=== PATIENT | male | born 1940 | race Caucasian/White ===

== ENCOUNTER → 2018-05-18 | Outpatient (CLI) | payer MEDICARE, OTHER ==
[~2018-05-18] MED LIST: REGADENOSON 0.4 MG/5 ML DISP.SYRIN. IV ONE
--- NOTE | 2018-05-18 11:08 | PCVCIMAG ---
APPROVED REPORT Study performed: 05/18/2018 08:03:07 EXAM: Comprehensive 2D, Doppler, and color-flow Echocardiogram Patient Location: Echo lab Status: routine BSA: 1.94 HR: 68 bpmBP: 140/70 mmHg Rhythm: NSR Other Information Study Quality: Good Risk Factors: Cardiac Risk Factors: Hyperlipidemia, HTN Indications CAD COPD, Sleep apnea 2D Dimensions IVSd: 11.72 (7-11mm)LVOT Diam: 19.91 (18-24mm) LVDd: 50.45 mm PWd: 10.69 (7-11mm)Ascending Ao: 35.48 (22-36mm) LVDs: 33.48 (25-40mm) Left Atrium: 46.45 (27-40mm) Aortic Root: 24.21 mm LV Single Plane 4CH: 54.69 % LV Single Plane 2CH: 71.16 % Biplane EF: 62.9 % Volumes Left Atrial Volume (Systole) Single Plane 4CH: 66.24 mLSingle Plane 2CH: 65.60 mL LA ESV Index: 36.00 mL/m2 Aortic Valve AoV Peak Chaz.: 4.97 m/s AO Peak Gr.: 98.64 mmHgLVOT Max P.12 mmHg AO Mean Gr.: 63.89 mmHgLVOT Mean P.78 mmHg AO V2 Mean: 3.87 m/sLVOT Max V: 1.13 m/s AO V2 VTI: 121.80 cmLVOT Mean V: 0.95 m/s [place] (VTI): 0.70 [id number] V1 VTI: 27.59 cm [place] Vmax: 0.71 cm2 AI Vmax: 2.93 m/sSV (LVOT): 85.82 mL AI [place]ar: 1.72 m/s2 AI PHT: 493.05 ms Mitral Valve E/A Ratio: 1.0 MV Decel. Time: 168.35 ms MV E Max Chaz.: 0.96 m/s MV A Chaz.: 1.00 m/s IVRT: 128.03 ms TDI E/Lateral E': 16.00E/Medial E': 12.00 Medial E' Chaz.: 0.08 m/s Lateral E' Chaz.: 0.06 m/s Pulmonary Valve PV Peak Gr.: 2.34 mmHg Pulmonary Vein P Vein S: 0.50 m/sP Vein A: 0.32 m/s P Vein D: 0.35 m/sP Vein A Dur.: 79.6 msec P Vein S/D Ratio: 1.43 Left Ventricle The left ventricle is normal size. There is normal LV segmental wall motion. Mild concentric left ventricular hypertrophy. Left ventricular systolic function is normal. The left ventricular ejection fraction is within the normal range. LVEF is 60-65%. Right Ventricle The right ventricle is normal size. The right ventricular systolic function is normal. Atria Left atrium is mildly dilated. The right atrium size is normal. Aortic Valve Aortic valve leaflets are moderately thickened. Mild aortic regurgitation. Severe aortic stenosis. Highest mean aortic valve gradient is 64mmHg. Peak aortic valve gradient is 99mmHg. Aortic valve area is .7cm2. Mitral Valve Mitral valve leaflets are thickened. Mild mitral regurgitation. No evidence of mitral valve stenosis. Tricuspid Valve The tricuspid valve is normal in structure. There is no tricuspid valve regurgitation noted. Pulmonic Valve The pulmonary valve is normal in structure. There is no pulmonic valvular regurgitation. Great Vessels The aortic root is normal in size. IVC is normal in size and collapses >50% with inspiration. Pericardium There is no pericardial effusion. <Conclusion> The left ventricle is normal size. Mild concentric left ventricular hypertrophy. Left ventricular systolic function is normal. The right ventricle is normal size. Left atrium is mildly dilated. Mild aortic regurgitation. Severe aortic stenosis. Highest mean aortic valve gradient is 64mmHg. Mitral valve leaflets are thickened. Mild mitral regurgitation.
--- NOTE | 2018-05-18 13:10 | PCVCIMAG ---
APPROVED REPORT Imaging Protocol: Rest Tc-99m/Stress Tc-99m 1 day Study performed: 05/18/2018 08:47:40 Indication: CAD, TERRY, Aortic Stenosis Patient Location: Out-Patient Stress Nurse: Lynsey Moss RN, Koki Joya RN DC Tech:Mark Mckee NMTCB Ht: 5 ft 5 in Wt: 190 lbs BSA: 1.94 m2 HR: 61 bpm BP: 138/63 mmHg BMI: 31.61 Rhythm: Sinus Rhythm, T wave Abnormality Medical History Medical History: Age, Hyperlipidemia, COPD, Former smoker Medications: Simvastatin, Nitroglycerin Allergies: Crestor Previous Cardiac Procedures: PCI Exercise History: Sedentary Resting Data Rest SPECT myocardial perfusion imaging was performed in supine position 45 minutes following the intravenous injection of 11.1 mCi of Tc-99m Sestamibi. Time of rest injection: 0850 Date: 05/18/2018 Administration Route: IV Administration Site: Right AC Pharmacologic Stress Pharmacologic stress test was performed by injecting Regadenoson 0.4 mg IV push over 10-15 seconds immediately followed by the intravenous injection of 35.6 mCi of Tc-99m Sestamibi. Time of stress injection: 1000 Date: 05/18/2018 Administration Route: IV Administration Site: Right AC Gated Stress SPECT was performed 45 minutes after stress injection. The images were gated to evaluate regional wall motion and calculate left ventricular ejection fraction. Stress Test Details Stress Test: Pharmacologic stress testing performed using 0.4 mg of regadenoson per 5 mL given IV over 10 seconds. Reason for pharmacologic stress test: Knee issues. HRMax Heart Rate (APMHR): 144 bpm Resting HR: 61 bpmTarget HR (85% APMHR): 122 bpm Max HR Achieved: 76 bpm % of APMHR: 52 Recovery HR: 73 bpm BP Resting BP: 138/63 mmHg Max BP: 139/53 mmHg Recovery BP: 131/60 mmHg ECG Resting ECG: Sinus Rhythm, ST-T wave Abn. Stress ECG: Sinus Rhythm, ST-T wave Abn. ST Change: Nondiagnostic resting ST abnormalities Arrhythmia: None Recovery ECG: Sinus Rhythm, ST-T wave Abn. Clinical Reason for Termination: Completed protocol Stress Symptoms: Dyspnea, Headache, Dizziness Symptoms resolved with caffeine. Study Quality Study: Good Study Data Post stress, the left ventricular ejection was 56%.. SSS: 2 SRS: 0 SDS: 2 TID = 1.12. Perfusion There is a medium area of moderately reduced uptake in the basal and mid segment of the inferior wall which is seen on the stress images and improves on the resting images. This area thickens and moves normally and is most consistent with ischemia. Wall Motion Normal left ventricular wall motion. Nuclear Conclusion ECG Findings: non-diagnostic Clinical Findings: non-diagnostic Nuclear Findings: positive for ischemia Exercise Capacity: not assessed Left Ventricular Function: normal There is ischemia in the basal and mid segment of the inferior wall. Normal global and segmental LV systolic function.
== END | disposition home or self-care (01) ==
LOC: PCVCIMAG 12:24
PROVIDERS: ATTEND Internal Medicine Cardiovascular Disease
DX: I08.0 Rheumatic disorders of both mitral and aortic valves (principal); I25.10 Atherosclerotic heart disease of native coronary artery without angina pectoris; J44.9 Chronic obstructive pulmonary disease, unspecified; R06.09 Other forms of dyspnea; I10 Essential (primary) hypertension; E78.00 Pure hypercholesterolemia, unspecified; G47.00 Insomnia, unspecified; Z87.891 Personal history of nicotine dependence
CPT/HCPCS: 36415; 78452; 93017; 93306; A9500; G0463; J2785

== ENCOUNTER → 2018-07-06 | Outpatient (CLI) | payer MEDICARE, OTHER | END | disposition home or self-care (01) | LOC: PCVCCLINIC 14:21 | PROVIDERS: ATTEND Internal Medicine | DX: I25.10 Atherosclerotic heart disease of native coronary artery without angina pectoris (principal); I35.0 Nonrheumatic aortic (valve) stenosis; I10 Essential (primary) hypertension; I48.91 Unspecified atrial fibrillation; E78.00 Pure hypercholesterolemia, unspecified; G47.33 Obstructive sleep apnea (adult) (pediatric); Z79.82 Long term (current) use of aspirin; Z87.891 Personal history of nicotine dependence | CPT/HCPCS: 36415; 85610; 93005; G0463 ==

== ENCOUNTER → 2018-07-13 | Outpatient (CLI) | payer MEDICARE, OTHER | END | disposition home or self-care (01) | LOC: PCVCCLINIC 13:04 | PROVIDERS: ATTEND Internal Medicine Cardiovascular Disease | DX: Z51.81 Encounter for therapeutic drug level monitoring (principal); Z79.01 Long term (current) use of anticoagulants; Z88.8 Allergy status to other drugs, medicaments and biological substances; Z88.6 Allergy status to analgesic agent | CPT/HCPCS: 36415; 85610 ==

== ENCOUNTER → 2018-07-19 | Outpatient (CLI) | payer MEDICARE, OTHER | END | disposition home or self-care (01) | LOC: PCVCCLINIC 10:53 | PROVIDERS: ATTEND Internal Medicine Cardiovascular Disease | DX: Z51.81 Encounter for therapeutic drug level monitoring (principal); I25.10 Atherosclerotic heart disease of native coronary artery without angina pectoris; E78.00 Pure hypercholesterolemia, unspecified; J44.9 Chronic obstructive pulmonary disease, unspecified; I48.91 Unspecified atrial fibrillation; Z79.01 Long term (current) use of anticoagulants | CPT/HCPCS: 36415; 85610 ==

== ENCOUNTER → 2018-07-20 | Outpatient (CLI) | payer MEDICARE, OTHER | END | disposition home or self-care (01) | LOC: PCVCCLINIC 15:30 | PROVIDERS: ATTEND Internal Medicine Cardiovascular Disease | DX: I25.10 Atherosclerotic heart disease of native coronary artery without angina pectoris (principal); I10 Essential (primary) hypertension; I48.91 Unspecified atrial fibrillation; Z87.891 Personal history of nicotine dependence | CPT/HCPCS: 93005; G0463 ==

== ENCOUNTER → 2018-07-20 | Outpatient (CLI) | payer MEDICARE, OTHER ==
--- NOTE | 2018-07-20 17:19 | PCVCIMAG ---
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 2D Dimensions IVSd: 9.94 (7-11mm)LVOT Diam: 21.32 (18-24mm) LVDd: 43.64 mm PWd: 11.15 (7-11mm)Ascending Ao: 32.87 (22-36mm) LVDs: 35.30 (25-40mm) Left Atrium: 51.09 (27-40mm) Aortic Root: 31.28 mm LV Single Plane 4CH: 56.80 % LV Single Plane 2CH: 53.95 % Biplane EF: 56.4 % Volumes Left Atrial Volume (Systole) Single Plane 4CH: 85.91 mLSingle Plane 2CH: 76.53 mL LA ESV Index: 43.00 mL/m2 Aortic Valve AoV Peak Chaz.: 3.21 m/s AO Peak Gr.: 41.25 mmHgLVOT Max P.78 mmHg AO Mean Gr.: 18.93 mmHgLVOT Mean P.54 mmHg AO V2 Mean: 1.99 m/sLVOT Max V: 1.39 m/s AO V2 VTI: 58.91 cmLVOT Mean V: 0.85 m/s [place] (VTI): 1.59 [id number] V1 VTI: 26.19 cm [place] Vmax: 1.55 cm2 SV (LVOT): 93.45 mL Mitral Valve E/A Ratio: 1.4 MV Decel. Time: 240.28 ms MV E Max Chaz.: 1.15 m/s MV A Chaz.: 0.83 m/s IVRT: 58.82 ms Pulmonary Valve PV Peak Chaz.: 1.39 m/sPV Peak Gr.: 7.69 mmHg Pulmonary Vein P Vein S: 0.35 m/sP Vein A: 0.29 m/s P Vein D: 0.56 m/sP Vein A Dur.: 148.8 msec P Vein S/D Ratio: 0.63 Tricuspid Valve TR Peak Chaz.: 2.45 m/s TR Peak Gr.: 24.01 mmHg TV Vmax: 0.73 m/s Left Ventricle The left ventricle is normal size. There is normal LV segmental wall motion. There is normal left ventricular wall thickness. Left ventricular systolic function is normal. The left ventricular ejection fraction is within the normal range. LVEF is 55-60%. Grade II - pseudonormal filling dynamics. Right Ventricle The right ventricle is normal size. The right ventricular systolic function is normal. Atria Left atrium is moderately dilated. Right atrium is moderately dilated. Aortic Valve #21 mm Aldo Malave bioprosthetic aortic valve replacement Trace aortic regurgitation. Maximum pressure gradient of 41 mmHg and mean pressure gradient of 19 mmHg. Mitral Valve The mitral valve is normal in structure. Mild mitral regurgitation. No evidence of mitral valve stenosis. Tricuspid Valve The tricuspid valve is normal in structure. Mild tricuspid regurgitation with PAP of 31 mmHg. Pulmonic Valve The pulmonary valve is normal in structure. Moderate pulmonic regurgitation. Great Vessels The aortic root is normal in size. IVC is normal in size and collapses >50% with inspiration. Pericardium There is no pericardial effusion. There is no pleural effusion. <Conclusion> The left ventricle is normal size. There is normal left ventricular wall thickness. Left ventricular systolic function is normal. Grade II - pseudonormal filling dynamics. The right ventricle is normal size. Left atrium is moderately dilated. Right atrium is moderately dilated. #21 mm Aldo Malave bioprosthetic aortic valve replacement Mild mitral regurgitation. Mild tricuspid regurgitation with PAP of 31 mmHg.
== END | disposition home or self-care (01) ==
LOC: PCVCIMAG 15:04
PROVIDERS: ATTEND Internal Medicine Cardiovascular Disease
DX: I08.1 Rheumatic disorders of both mitral and tricuspid valves (principal); I25.10 Atherosclerotic heart disease of native coronary artery without angina pectoris; I10 Essential (primary) hypertension; R60.9 Edema, unspecified; I48.0 Paroxysmal atrial fibrillation; M19.90 Unspecified osteoarthritis, unspecified site; Z79.82 Long term (current) use of aspirin; Z87.891 Personal history of nicotine dependence; Z88.8 Allergy status to other drugs, medicaments and biological substances
CPT/HCPCS: 93005; 93306; G0463

== ENCOUNTER → 2018-07-26 | Outpatient (CLI) | payer MEDICARE, OTHER | END | disposition home or self-care (01) | LOC: PCVCCLINIC 09:00 | PROVIDERS: ATTEND Internal Medicine Cardiovascular Disease | DX: Z51.81 Encounter for therapeutic drug level monitoring (principal); I25.10 Atherosclerotic heart disease of native coronary artery without angina pectoris; J44.9 Chronic obstructive pulmonary disease, unspecified; E78.00 Pure hypercholesterolemia, unspecified; I48.91 Unspecified atrial fibrillation; Z79.01 Long term (current) use of anticoagulants | CPT/HCPCS: 36415; 85610 ==

== ENCOUNTER → 2018-08-17 | Outpatient (CLI) | payer MEDICARE, OTHER | END | disposition home or self-care (01) | LOC: PCVCCLINIC 13:00 | PROVIDERS: ATTEND Internal Medicine Cardiovascular Disease | DX: Z51.81 Encounter for therapeutic drug level monitoring (principal); I25.10 Atherosclerotic heart disease of native coronary artery without angina pectoris; E78.00 Pure hypercholesterolemia, unspecified; J44.9 Chronic obstructive pulmonary disease, unspecified; I48.91 Unspecified atrial fibrillation; Z79.01 Long term (current) use of anticoagulants | CPT/HCPCS: 36415; 85610 ==

== ENCOUNTER → 2018-08-26 | Outpatient (CLI) | payer MEDICARE, OTHER | END | disposition home or self-care (01) | LOC: PCVCCLINIC 09:20 | PROVIDERS: ATTEND Internal Medicine Cardiovascular Disease | DX: Z51.81 Encounter for therapeutic drug level monitoring (principal); I48.91 Unspecified atrial fibrillation; E78.00 Pure hypercholesterolemia, unspecified; J44.9 Chronic obstructive pulmonary disease, unspecified; E66.09 Other obesity due to excess calories; Z79.01 Long term (current) use of anticoagulants; Z88.8 Allergy status to other drugs, medicaments and biological substances | CPT/HCPCS: 36415; 85610 ==

== ENCOUNTER → 2018-09-02 | Outpatient (CLI) | payer MEDICARE, OTHER | END | disposition home or self-care (01) | LOC: PCVCCLINIC 09:30 | PROVIDERS: ATTEND Internal Medicine Cardiovascular Disease | DX: Z51.81 Encounter for therapeutic drug level monitoring (principal); E78.00 Pure hypercholesterolemia, unspecified; J44.9 Chronic obstructive pulmonary disease, unspecified; E66.09 Other obesity due to excess calories; I48.91 Unspecified atrial fibrillation; Z79.01 Long term (current) use of anticoagulants | CPT/HCPCS: 36415; 85610 ==

== ENCOUNTER → 2018-09-15 | Outpatient (CLI) | payer MEDICARE, OTHER | END | disposition home or self-care (01) | LOC: PCVCCLINIC 09:10 | PROVIDERS: ATTEND Internal Medicine Cardiovascular Disease | DX: Z51.81 Encounter for therapeutic drug level monitoring (principal); I25.10 Atherosclerotic heart disease of native coronary artery without angina pectoris; E78.00 Pure hypercholesterolemia, unspecified; J44.9 Chronic obstructive pulmonary disease, unspecified; Z79.01 Long term (current) use of anticoagulants | CPT/HCPCS: 36415; 85610 ==

== ENCOUNTER → 2018-09-22 | Outpatient (CLI) | payer MEDICARE, OTHER | END | disposition home or self-care (01) | LOC: PCVCCLINIC 12:00 | PROVIDERS: ATTEND Internal Medicine Cardiovascular Disease | DX: Z51.81 Encounter for therapeutic drug level monitoring (principal); I25.10 Atherosclerotic heart disease of native coronary artery without angina pectoris; E78.00 Pure hypercholesterolemia, unspecified; J44.9 Chronic obstructive pulmonary disease, unspecified; I48.91 Unspecified atrial fibrillation; Z79.01 Long term (current) use of anticoagulants | CPT/HCPCS: 36415; 85610 ==

== ENCOUNTER → 2018-09-28 | Outpatient (CLI) | payer MEDICARE, OTHER | END | disposition home or self-care (01) | LOC: PCVCCLINIC 15:00 | PROVIDERS: ATTEND Internal Medicine Cardiovascular Disease | DX: I48.91 Unspecified atrial fibrillation (principal); E78.00 Pure hypercholesterolemia, unspecified; I25.10 Atherosclerotic heart disease of native coronary artery without angina pectoris; I12.9 Hypertensive chronic kidney disease with stage 1 through stage 4 chronic kidney disease, or unspecified chronic kidney disease; N18.9 Chronic kidney disease, unspecified; M19.90 Unspecified osteoarthritis, unspecified site; I48.0 Paroxysmal atrial fibrillation; Z79.82 Long term (current) use of aspirin | CPT/HCPCS: 93005; G0463 ==

== ENCOUNTER → 2019-01-04 | Outpatient (CLI) | payer MEDICARE, OTHER ==
--- NOTE | 2019-01-04 09:58 | PCVCIMAG ---
APPROVED REPORT Study performed: 01/04/2019 08:46:27 EXAM: Comprehensive 2D, Doppler, and color-flow Echocardiogram Patient Location: Echo lab Status: routine BSA: 1.93 HR: 56 bpmBP: 122/72 mmHg Rhythm: Bradycardia Other Information Study Quality: Adequate Indications Atrial Fibrillation CAD #21 bioprosthetic AVR 2D Dimensions IVSd: 12.42 (7-11mm)LVOT Diam: 21.12 (18-24mm) LVDd: 44.45 mm PWd: 11.82 (7-11mm)Ascending Ao: 32.03 (22-36mm) LVDs: 26.98 (25-40mm) Left Atrium: 47.69 (27-40mm) Aortic Root: 33.04 mm LV Single Plane 4CH: 59.37 % LV Single Plane 2CH: 68.12 % Biplane EF: 64.0 % Volumes Left Atrial Volume (Systole) Single Plane 4CH: 83.44 mLSingle Plane 2CH: 82.66 mL LA ESV Index: 45.00 mL/m2 Aortic Valve AoV Peak Chaz.: 3.02 m/s AO Peak Gr.: 36.36 mmHgLVOT Max P.37 mmHg AO Mean Gr.: 18.90 mmHgLVOT Mean P.26 mmHg AO V2 Mean: 2.04 m/sLVOT Max V: 1.36 m/s AO V2 VTI: 64.21 cmLVOT Mean V: 0.99 m/s [place] (VTI): 1.62 [id number] V1 VTI: 29.74 cm [place] Vmax: 1.58 cm2 SV (LVOT): 104.09 mL Mitral Valve E/A Ratio: 1.4 MV Decel. Time: 279.96 ms MV E Max Chaz.: 0.79 m/s MV A Chaz.: 0.57 m/s IVRT: 96.89 ms Pulmonary Valve PV Peak Chaz.: 1.13 m/sPV Peak Gr.: 5.13 mmHg Pulmonary Vein P Vein S: 0.27 m/sP Vein A: 0.36 m/s P Vein D: 0.38 m/sP Vein A Dur.: 121.1 msec P Vein S/D Ratio: 0.71 Tricuspid Valve TR Peak Chaz.: 2.40 m/s TR Peak Gr.: 23.13 mmHg Left Ventricle The left ventricle is normal size. There is normal LV segmental wall motion. Mild concentric left ventricular hypertrophy. Left ventricular systolic function is normal. The left ventricular ejection fraction is within the normal range. LVEF is 60-65%. Grade II - pseudonormal filling dynamics. Right Ventricle The right ventricle is normal size. The right ventricular systolic function is normal. Atria Left atrium is moderately dilated. Right atrium is mildly dilated. Aortic Valve Normally functioning #21 Aldo Malave bioprosthetic valve in the aortic position. No aortic regurgitation is present. Calculated aortic valve area is 1.6 cm2 with maximum pressure gradient of 36 mmHg and mean pressure gradient of 19 mmHg. Mitral Valve The mitral valve is normal in structure. Mild mitral regurgitation. No evidence of mitral valve stenosis. Tricuspid Valve The tricuspid valve is normal in structure. Mild tricuspid regurgitation with PAP of 30 mmHg. Pulmonic Valve The pulmonary valve is normal in structure. There is no pulmonic valvular regurgitation. Great Vessels The aortic root is normal in size. IVC is normal in size and collapses >50% with inspiration. Pericardium There is no pericardial effusion. There is no pleural effusion. <Conclusion> The left ventricle is normal size. Mild concentric left ventricular hypertrophy. Left ventricular systolic function is normal. Grade II - pseudonormal filling dynamics. The right ventricle is normal size. Left atrium is moderately dilated. Normally functioning #21 Aldo Malave bioprosthetic valve in the aortic position. Mild mitral regurgitation. Mild tricuspid regurgitation with PAP of 30 mmHg.
== END | disposition home or self-care (01) ==
LOC: PCVCIMAG 08:59
PROVIDERS: ATTEND Internal Medicine Cardiovascular Disease
DX: I08.3 Combined rheumatic disorders of mitral, aortic and tricuspid valves (principal); I25.810 Atherosclerosis of coronary artery bypass graft(s) without angina pectoris; I48.0 Paroxysmal atrial fibrillation; I10 Essential (primary) hypertension; E78.00 Pure hypercholesterolemia, unspecified; R60.9 Edema, unspecified; G47.33 Obstructive sleep apnea (adult) (pediatric); Z95.2 Presence of prosthetic heart valve; Z99.89 Dependence on other enabling machines and devices; Z79.82 Long term (current) use of aspirin; Z87.891 Personal history of nicotine dependence
CPT/HCPCS: 93005; 93306; G0463